=== PATIENT | female | born 2000 | race Hispanic/Latino ===

== ENCOUNTER 2021-06-28 06:40 | Inpatient (IN) | payer MEDICAID, OTHER ==
[2021-06-28] VITALS (11 sets, daily range): BP systolic 91–168; BP diastolic 53–103
[~2021-06-28] VITALS: Ht 152.4 cm; Wt 72.6 kg
[2021-06-28 07:20] LABS: ABG BASE EXCESS -20.7 mmol/L (-2.0-3.0); ABG HCO3 5.5 mmol/L (21.0-28.0); ABG OXYGEN SATURATION 98.3 % (95.0-99.0); ABG PCO2 16 mmHg (32-45)
[2021-06-28] MEDS ORDERED: 0.9%NACL 1000ML 1,000 ML IV SCH ×3 (07:30→09:30)
[2021-06-28] MEDS ORDERED: ONDANSETRON 4MG INJ ONE (07:50)
[2021-06-28] MEDS ORDERED: ACETAMINOPHEN 500 MG TABLET ONE (07:51)
[2021-06-28] MEDS ORDERED: 0.9%NACL 1000ML 2,000 ML IV ONE (07:51)
[2021-06-28] MEDS ORDERED: ONDANSETRON 4MG INJ IVP SCH (08:00)
[2021-06-28] MEDS ORDERED: ACETAMINOPHEN 500 MG TABLET PO SCH (08:00)
[2021-06-28 08:17] LABS: BASOPHILS % (AUTO) 0.3 % (0.0-5.0); EOSINOPHILS % (AUTO) 0.5 % (0.0-8.0); HEMATOCRIT 50.3 % (36-48); LYMPHOCYTES % (AUTO) 9.4 % (21.0-51.0); MEAN CORPUSCULAR HEMOGLOBIN 28.5 pg (27.0-33.0); MEAN CORPUSCULAR HGB CONC 31.4 g/dL (32.0-36.0); MEAN CORPUSCULAR VOLUME 90.8 fL (80-100); MONOCYTES % (AUTO) 2.3 % (3.0-13.0); NEUTROPHILS % (AUTO) 86.5 % (40.0-77.0); PLATELET COUNT (AUTO) 214 K/uL (130-400); RED BLOOD CELL COUNT(AUTO) 5.54 MIL/uL (4.00-5.50); RED CELL DISTRIBUTION WIDTH 12.9 % (11.0-15.5); WHITE BLOOD COUNT (AUTO) 8.8 K/uL (4.8-10.8)
[2021-06-28 08:21] LABS: APPEARANCE,URINE Clear (CLEAR); BILIRUBIN,URINE Negative (NEGATIVE); COLOR,URINE Yellow (YELLOW); GLUCOSE, URINE (UA) >=1000 mg/dL (NEGATIVE); KETONES,URINE >=160 mg/dL (NEGATIVE); LEUKOCYTE ESTERASE ,URINE Negative (NEGATIVE); NITRATE,URINE Negative (NEGATIVE); OCCULT BLOOD,URINE Negative (NEGATIVE); PROTEIN,URINE POS 2+ mg/dL (NEGATIVE); UROBILINOGEN,URINE 0.2 mg/dL (0.2-1.0)
[2021-06-28 08:35] LABS: ALANINE AMINOTRANSFERASE 69 U/L (12-78); ALBUMIN 4.6 g/dL (3.5-5.0); ASPARTATE AMINOTRANSFERASE 39 U/L (10-37); BILIRUBIN,TOTAL 0.7 mg/dL (0.2-1.0); CHLORIDE 93 mmol/L (101-111); CREATININE 1.3 mg/dL (0.5-1.5); GLOMERULAR FILTR. RATE CALC 55 mL/min (>60); POTASSIUM 5.4 mmol/L (3.5-5.1); SODIUM SERUM 134 mmol/L (136-145); TOTAL PROTEIN, SERUM 9.6 g/dL (6.0-8.3); UREA NITROGEN, BLOOD 13 mg/dL (7-18)
[2021-06-28 08:41] LABS: CARBON DIOXIDE 9 mmol/L (21-32); GLUCOSE,RANDOM 668 mg/dL (70-105)
[2021-06-28 08:53] LABS: YEAST,URINE BUDDING Few /HPF (None Seen)
[2021-06-28 08:54] LABS: BACTERIA,URINE Few /HPF (None Seen); RBC,URINE None Seen /HPF (0-1); WBC,URINE None Seen /HPF (0-1)
[2021-06-28] MEDS ORDERED: ACETAMINOPHEN 325 MG TAB PO PRN (10:00)
[2021-06-28] MEDS ORDERED: ONDANSETRON 4MG INJ IV PRN (10:00)
[2021-06-28] MEDS: INSULIN HUMULIN R 100 UNIT/ML 3ML IV SCH ×2 (10:18→10:19)
[2021-06-28] MEDS: 0.9%NACL 1000ML 1,000 ML IV SCH ×3 (10:19→22:04)
[2021-06-28] MEDS ORDERED: 0.9%NACL 100ML 100 ML ONE (10:29)
[2021-06-28] MEDS ORDERED: INSULIN REGULAR, HUMAN 3ML 100 UNIT in 0.9%NACL 100ML 99 ML IV PRN ×2 (10:30)
[2021-06-28] MEDS ORDERED: ENOXAPARIN SODIUM 30 MG/0.3 ML SQ ONE (10:35)
[2021-06-28] MEDS ORDERED: FAMOTIDINE 20MG VIAL IV ONE (10:35)
[2021-06-28] MEDS: CEFTRIAXONE 1G VIAL IVP SCH (13:04)
[2021-06-28 13:21] LABS: HEMOGLOBIN A1C 10.5 % (4.0-6.0)
[2021-06-28 13:28] LABS: ALBUMIN 3.9 g/dL (3.5-5.0); BILIRUBIN,TOTAL 0.5 mg/dL (0.2-1.0); CREATININE 0.9 mg/dL (0.5-1.5); POTASSIUM 5.8 mmol/L (3.5-5.1); TOTAL PROTEIN, SERUM 8.4 g/dL (6.0-8.3)
[2021-06-28 13:33] LABS: ABG BASE EXCESS -19.9 mmol/L (-2.0-3.0); ABG HCO3 6.5 mmol/L (21.0-28.0); ABG OXYGEN SATURATION 96.6 % (95.0-99.0); ABG PCO2 19 mmHg (32-45)
[2021-06-28] MEDS ORDERED: MORPHINE 2 MG SYG ONE (13:52)
[2021-06-28] MEDS ORDERED: MORPHINE 2 MG SYG IV ONE (14:30)
[2021-06-28] MEDS ORDERED: FAMOTIDINE 20MG VIAL IV SCH ×2 (14:30→21:00)
[2021-06-28] MEDS ORDERED: DEXTROSE 5 % AND 0.9 % NACL 1,000 ML IV ONE (15:36)
[2021-06-28 18:27] LABS: CREATININE 0.8 mg/dL (0.5-1.5); POTASSIUM 4.1 mmol/L (3.5-5.1)
[2021-06-28 18:32] LABS: ALBUMIN 3.3 g/dL (3.5-5.0); BILIRUBIN,TOTAL 0.3 mg/dL (0.2-1.0); TOTAL PROTEIN, SERUM 7.4 g/dL (6.0-8.3)
[2021-06-28] MEDS: FAMOTIDINE 20MG VIAL IV SCH (22:02)
[2021-06-28 23:38] LABS: CREATININE 0.7 mg/dL (0.5-1.5); MAGNESIUM 1.7 mg/dL (1.80-2.40); POTASSIUM 3.7 mmol/L (3.5-5.1)
[2021-06-29] VITALS (15 sets, daily range): BP systolic 102–141; BP diastolic 54–80
[2021-06-29 03:54] LABS: ABG BASE EXCESS -11.8 mmol/L (-2.0-3.0); ABG HCO3 12.7 mmol/L (21.0-28.0); ABG OXYGEN SATURATION 95.5 % (95.0-99.0); ABG PCO2 26 mmHg (32-45)
[2021-06-29] MEDS ORDERED: MAGNESIUM 2GM PREMIX 50ML 50 ML IV ONE (04:15)
[2021-06-29] MEDS ORDERED: SODIUM BICARB 50MEQ 50ML VIAL 100 ML ONE (04:16)
[2021-06-29] MEDS ORDERED: MAGNESIUM 2GM PREMIX 50ML 50 ML IV PRN (04:30)
[2021-06-29] MEDS ORDERED: SODIUM BICARB 50MEQ 50ML VIAL IV ONE ×2 (04:30)
[2021-06-29] MEDS: 0.9%NACL 1000ML 1,000 ML IV SCH ×3 (05:17→17:53)
[2021-06-29] MEDS: DEXTROSE 5 %-0.45 % NACL 1,000 ML IV PRN (05:18)
[2021-06-29 08:09] LABS: BASOPHILS % (AUTO) 0.2 % (0.0-5.0); HEMATOCRIT 37.3 % (36-48); LYMPHOCYTES % (AUTO) 20.6 % (21.0-51.0); MEAN CORPUSCULAR HEMOGLOBIN 29.3 pg (27.0-33.0); MEAN CORPUSCULAR HGB CONC 33.8 g/dL (32.0-36.0); MEAN CORPUSCULAR VOLUME 86.7 fL (80-100); MONOCYTES % (AUTO) 6.4 % (3.0-13.0); NEUTROPHILS % (AUTO) 72.6 % (40.0-77.0); PLATELET COUNT (AUTO) 154 K/uL (130-400); RED CELL DISTRIBUTION WIDTH 13.2 % (11.0-15.5); WHITE BLOOD COUNT (AUTO) 4.7 K/uL (4.8-10.8)
[2021-06-29 08:41] LABS: ALBUMIN 2.9 g/dL (3.5-5.0); BILIRUBIN,TOTAL 0.4 mg/dL (0.2-1.0); CREATININE 0.6 mg/dL (0.5-1.5); CRP QUANTITATIVE 31.9 mg/L (0.00-9.0); POTASSIUM 3.3 mmol/L (3.5-5.1); TOTAL PROTEIN, SERUM 6.2 g/dL (6.0-8.3)
[2021-06-29] MEDS: FAMOTIDINE 20MG VIAL IV SCH ×2 (10:25→20:28)
[2021-06-29] MEDS: ENOXAPARIN SODIUM 30 MG/0.3 ML SQ SCH (10:28)
[2021-06-29] MEDS: CEFTRIAXONE 1G VIAL IVP SCH (12:54)
[2021-06-29 13:05] LABS: CREATININE 0.7 mg/dL (0.5-1.5); POTASSIUM 3.3 mmol/L (3.5-5.1)
[2021-06-29 15:40] LABS: ABG HCO3 15.6 mmol/L (21.0-28.0); ABG PCO2 28 mmHg (32-45)
[2021-06-29 18:07] LABS: CREATININE 0.6 mg/dL (0.5-1.5)
[2021-06-29] MEDS ORDERED: POTASSIUM CHLORIDE 20MEQ/100ML 100 ML IV ONE (21:51)
[2021-06-29] MEDS ORDERED: DEXTROSE 5%-LACTATED RINGERS 1,000 ML IV ONE (21:52)
[2021-06-29] MEDS ORDERED: D5LR-20 MEQ KCL 1000ML BAG IV SCH (22:00)
[2021-06-30] VITALS (9 sets, daily range): BP systolic 99–139; BP diastolic 45–75
[2021-06-30] MEDS ORDERED: POTASSIUM CHLORIDE 20MEQ/100ML 100 ML IV ONE (05:22)
[2021-06-30 06:18] LABS: BASOPHILS % (AUTO) 0.2 % (0.0-5.0); EOSINOPHILS % (AUTO) 0.2 % (0.0-8.0); HEMATOCRIT 34.5 % (36-48); MEAN CORPUSCULAR HEMOGLOBIN 29.3 pg (27.0-33.0); MEAN CORPUSCULAR HGB CONC 34.5 g/dL (32.0-36.0); MONOCYTES % (AUTO) 6.9 % (3.0-13.0); NEUTROPHILS % (AUTO) 63.3 % (40.0-77.0); PLATELET COUNT (AUTO) 162 K/uL (130-400); RED BLOOD CELL COUNT(AUTO) 4.06 MIL/uL (4.00-5.50); WHITE BLOOD COUNT (AUTO) 4.5 K/uL (4.8-10.8)
[2021-06-30] MEDS: DEXTROSE 5 %-0.45 % NACL 1,000 ML IV PRN (06:38)
[2021-06-30 06:47] LABS: ALBUMIN 2.7 g/dL (3.5-5.0); BILIRUBIN,TOTAL 0.5 mg/dL (0.2-1.0); CREATININE 0.6 mg/dL (0.5-1.5); CRP QUANTITATIVE 17.7 mg/L (0.00-9.0); MAGNESIUM 1.4 mg/dL (1.80-2.40)
[2021-06-30] MEDS: 0.9%NACL 1000ML 1,000 ML IV SCH (08:50)
[2021-06-30] MEDS: FAMOTIDINE 20MG VIAL IV SCH (09:34)
[2021-06-30] MEDS: ENOXAPARIN SODIUM 30 MG/0.3 ML SQ SCH (09:35)
[2021-06-30 13:02] LABS: CREATININE 0.5 mg/dL (0.5-1.5); POTASSIUM 3.1 mmol/L (3.5-5.1)
[2021-06-30 13:51] LABS: ABG OXYGEN SATURATION 82.2 % (95.0-99.0); BASE EXCESS,VENOUS BLOOD GAS -4.1 (-2.0-3.0); HCO3,VENOUS BLOOD GAS 19.5 (21.0-28.0); PCO2,VENOUS BLOOD GAS 32 (32-45); PH,VENOUS BLOOD GAS 7.402 (7.350-7.450)
[2021-06-30] MEDS: CEFTRIAXONE 1G VIAL IVP SCH (14:11)
[2021-06-30] MEDS: POTASSIUM CHLORIDE 10MEQ/100ML 100 ML IV PRN ×2 (15:24→18:29)
[2021-06-30 17:58] LABS: CREATININE 0.5 mg/dL (0.5-1.5); POTASSIUM 3.3 mmol/L (3.5-5.1)
[2021-06-30] MEDS ORDERED: D5LR-20 MEQ KCL 1000 ML 1,000 ML IV SCH (19:00)
== END 2021-06-30 21:18 | disposition left against medical advice (07) | DRG 637 ==
LOC: EDH 06:40 → EDHIP 06:41
PROVIDERS: ADMIT Hospitalist; ATTEND Hospitalist
DX: E10.10 Type 1 diabetes mellitus with ketoacidosis without coma (principal); U07.1 COVID-19; E86.0 Dehydration; E66.9 Obesity, unspecified; Z68.31 Body mass index [BMI] 31.0-31.9, adult; Z79.4 Long term (current) use of insulin; Z91.19 Patient's noncompliance with other medical treatment and regimen
CPT/HCPCS: 36415; 36600; 71045; 80048; 80053; 81001; 81025; 82010; 82550; 82803; 82948; 83036; 83735; 84484; 85025; 85378; 86140; 87040; 87635; 93005; C9803; G0378; J0696; J1650; J1815; J2405; J3475; J3480; J3490; J7030; J7042